=== PATIENT | female | born 1960 ===

== ENCOUNTER 2022-06-12 15:35 | Emergency (ER) | payer SELFPAY ==
--- NOTE | ~2022-06-12 | XR_ITS ---
EXAMINATION: XR chest 2V Exam Date/Time: 06/12/2022 16:32 UNDER CUTTER HISTORY: Midsternal chest pain x1 week. Pt denies cardiac hx Comparison: None available. RESULT: Lines, tubes, and devices: None. Lungs and pleura: Exercise change. Streaky and subsegmental right basilar opacities. Cardiomediastinal silhouette: Unremarkable. Other: No acute osseous or upper abdominal finding. IMPRESSION: Minimal, subsegmental right basilar atelectasis/consolidation. Reviewed, dictated and finalized at location K. R C[facility]TER
--- NOTE | 2022-06-12 15:38 | ECG_ITS ---
Measurements Intervals [place] Rate: 82 P: 72 NH: 161 QRS: 78 QRSD: 93 T: 35 QT: 343 QTc: 403 Interpretive Statements SINUS RHYTHM ST ABNORMALITY INFEROLATERAL LEADS, CONSIDER MYOCARDIAL ISCHEMIA ABNORMAL ECG NO PREVIOUS ECG AVAILABLE FOR COMPARISON Electronically Signed On 06-12-2022 17:04:37 LOCK EXPERT by Pedro Luis Sebastian M.D.
[2022-06-12 15:43] VITALS: BP 152/89; PULSE 81; RESP 18; TEMP 36.7; O2SAT 100
[2022-06-12 15:47] LABS: Basophils Absolute Auto 0.1 K/mm3 (0.0-0.1); Basophils Percent Auto 0.9 % (0.2-1.2); Eosinophils Absolute Auto 0.3 K/mm3 (0-0.3); Eosinophils Percent Auto 2.5 % (0-4.4); Hematocrit 46.1 % (37.0-47.0); Hemoglobin 15.5 g/dL (12.0-15.0); Immature Granulocyte Absolute 0.04 K/mm3 (0.00-0.031); Immature Granulocyte Percent A 0.4 % (0-0.5); Lymphocytes Absolute Auto 4.28 K/mm3 (0.9-3.2); Lymphocytes Percent Auto 39.9 % (18.3-44.2); Mean Corpuscular HGB Conc 33.6 g/dl (32-36); Mean Corpuscular Hemoglobin 31.4 pg (26-34); Mean Corpuscular Volume 93.5 fl (80-100); Mean Platelet Volume 9.8 fl (7.4-10.4); Monocytes Absolute Auto 0.8 K/mm3 (0.1-0.6); Neutrophils Absolute Auto 5.3 K/mm3 (1.3-6.7); Neutrophils Percent Auto 49.3 % (45.5-73.1); Platelet Count Result 303 k/mm3 (150-375); Red Blood Count 4.93 M/mm3 (4.2-5.4); Red Cell Distribution Width 13.1 % (11.5-14.5); White Blood Count 10.7 K/mm3 (4.5-10.0)
[2022-06-12 15:58] LABS: Alanine Aminotransferase 46 U/L (6-35); Albumin Level 4.7 g/dL (3.5-5.1); Alkaline Phosphatase 92 U/L (38-126); Anion Gap 7 mmol/L (8-16); Aspartate Amino Transferase 30 U/L (14-36); Bilirubin,Total 0.6 mg/dL (0.2-1.3); Blood Urea Nitrogen 7 mg/dL (7-17); Calcium 9.4 mg/dL (8.4-10.2); Carbon Dioxide 29 mmol/L (22-30); Chloride 101 mmol/L (98-107); Estimated CRCL calculation 64 ml/min; Estimated Glomerular Filt Rate > 60; Glucose 110 mg/dL (65-110); Lipase 119 U/L (23-300); Potassium 3.9 mmol/L (3.4-5.0); Prothrombin Time 12.7 Seconds (11.1-14.7); Sodium 137 mmol/L (137-145)
[2022-06-12 16:10] LABS: Troponin I < 0.012 ng/mL (0.000-0.034)
--- NOTE | 2022-06-12 16:48 | PC.NURSE ---
Pt presented to triage desk and stated that she was going to leave. Encouraged pt to stay for evaluation, however pt stated that her symptoms have subsided and she does not feel that she needs to stay. Pt in no acute distress at time of departing ED.
== END 2022-06-12 18:00 | disposition left against medical advice (07) ==
LOC: ANHED 16:54
PROVIDERS: Emergency Provider Emergency Medicine
DX: R07.89 Other chest pain (principal)
CPT/HCPCS: 36415; 71046; 80053; 83690; 84484; 85025; 85610; 85730; 93005; 99199